=== PATIENT | male | born 1990 | race Caucasian/White ===

== ENCOUNTER 2017-03-03 16:31 | Emergency (ER) | payer SELFPAY ==
--- NOTE | 2017-03-03 16:57 | UC ---
Throat Pain/Nasal Eric HPI - HPI Summary HPI Summary: 26 y/o male presents to the urgent care c/o coughing yellow sputum, sore throat , and body aches for 10 days. Pt states he deandre has nasal congestion with green nasal discharge, difficulty swallowing. Pain is 5/10 with subjective fever at home. Pt states cough is worse at night time. Pt denies SOB, chest pain , N/V/D - History of Current Complaint Chief Complaint: UCRespiratory Stated Complaint: SINUS Time Seen by Provider: 03/03/17 16:39 Hx Obtained From: Patient Onset/Duration: Gradual Onset, Lasting Days - 10 days, Still Present Severity: Moderate Pain Intensity: 5 - sore throat Pain Scale Used: 0-10 Numeric Cough: Sputum Appears - green Associated Signs & Symptoms: Positive: Dysphagia, Nasal Discharge - yelowish nasal discharge, Fever - subjective at home. Negative: Sinus Discomfort - Epiglottits Risk Factors Epiglottis Risk Factors: Negative - Allergies/Home Medications Allergies/Adverse Reactions: Allergies Allergy/AdvReac Type Severity Reaction Status Date / Time No Known Allergies Allergy Verified 03/03/17 16:43 PMH/Surg Hx/FS Hx/Imm Hx Previously Healthy: Yes - Pt denies PMHX - Surgical History Surgical History: None - Family History Known Family History: Positive: Unknown - Pt denies FMHX - Social History Occupation: Employed Full-time Lives: With Family Alcohol Use: None Substance Use Type: None Smoking Status (MU): Never Smoked Tobacco Review of Systems Constitutional: Fever - subjective Skin: Negative Eyes: Negative ENT: Sore Throat, Nasal Discharge - yellowish nasal discharge Respiratory: Cough - productive green sputum Cardiovascular: Negative Gastrointestinal: Negative Genitourinary: Negative Motor: Negative Neurovascular: Negative Musculoskeletal: Negative Neurological: Negative Psychological: Negative Is Patient Immunocompromised?: No All Other Systems Reviewed And Are Negative: Yes Physical Exam Triage Information Reviewed: Yes Appearance: Well-Appearing, No Pain Distress, Well-Nourished Vital Signs: Initial Vital Signs Temp 98.1 F 03/03/17 16:40 Pulse 75 03/03/17 16:40 Resp 12 03/03/17 16:40 Pulse Ox 99 03/03/17 16:40 Vital Signs Reviewed: Yes Eye Exam: Normal Eyes: Positive: Conjunctiva Clear - PERRLA, EOMI ENT: Positive: Normal ENT inspection, Hearing grossly normal, Pharyngeal erythema - no exudate, positive palate petechia, Nasal congestion - erythematous and edematous anasl mucosa, Nasal drainage - yellowish nasal discharge, TMs normal, Tonsillar swelling. Negative: Tonsillar exudate Dental Exam: Normal Neck exam: Normal Neck: Positive: Supple, Nontender, Enlarged Nodes @ - B/L anterior cervical lymphadenopathy tender to palpation and enlarged Respiratory Exam: Normal Respiratory: Positive: Chest non-tender, Lungs clear, Normal breath sounds, No respiratory distress Cardiovascular Exam: Normal Cardiovascular: Positive: RRR, No Murmur, Pulses Normal, Brisk Capillary Refill Abdominal Exam: Normal Abdomen Description: Positive: Nontender, No Organomegaly, Soft. Negative: CVA Tenderness (R), CVA Tenderness (L) Musculoskeletal Exam: Normal Musculoskeletal: Positive: Strength Intact, ROM Intact, No Edema Neurological Exam: Normal Psychological Exam: Normal Skin Exam: Normal Throat Pain/Nasal Course/Dx - Course Course Of Treatment: 26 y/o male presents to the urgent care c/o coughing yellow sputum, sore throat, and body aches for 10 days. Pt states he alaso has nasal congestion with green nasal discharge, difficulty swallowing. Pain is 5/ 10 with subjective fever at home. Pt states cough is worse at night time. Pt denies SOB, chest pain, N/V/D. Hx obtained. Rapid strep ordered: negative, Influenza A&B ordered: neagative. Pt with URI. Pt RX Ibuprofen PO for and Tessalon tabs PO to alleviate symptoms of sore throat and cough. Pt advised to increase fluid intake, rest and eat well. and If symptoms do not improve or worsen please return to the urgent care or f/u with your PCP for further evaluation and treatment.Pt understood and agreed with D/C instructions and left the clinic ambulating. - Differential Dx/Diagnosis Differential Diagnosis/HQI/PQRI: Influenza, Laryngitis, Mononucleosis, Pharyngitis, Sinusitis, Tonsillitis, URI Provider Diagnoses: 1- upper respiratory infection Discharge - Discharge Plan Condition: Stable Disposition: HOME Prescriptions: Benzonatate CAP* [Tessalon 100 MG CAP*] 100 mg PO TID PRN #15 cap PRN Reason: Cough Ibuprofen TAB* [Motrin TAB* 800 MG] 800 mg PO Q6H #20 tab Patient Education Materials: Upper Respiratory Infection (ED) Forms: *Work Release Referrals: No Primary Care Phys,NOPCP [Primary Care Provider] - [facility] [Outside] - If Needed Additional Instructions: 1-Please take ibuprofen PO q6-8hrs prn as instructed after meals to alleviate pain and swelling. 2-TAke Tessalon tabs PO for cough, increase fluid intake, rest and eat well 3-If symptoms do not improve or worsen please return to the urgent care or f/u with your PCP for further evaluation and treatment.
== END 2017-03-03 17:42 | disposition home or self-care (01) ==
LOC: UCEAST 16:31
DX: J06.9 Acute upper respiratory infection, unspecified (principal)
CPT/HCPCS: 87502; 87651; 99212; G0463